=== PATIENT | male | born 1995 | race Asian ===

== ENCOUNTER 2017-07-19 20:56 | Emergency (ER) | payer BC ==
[2017-07-19] MEDS ORDERED: SODIUM CHLORIDE 0.9% (FLUSH) 10 ML SYG IV PRN (21:05)
[2017-07-19] MEDS ORDERED: SODIUM CHLORIDE 0.9% 1000ML 1,000 ML IVS PRN (21:05)
[2017-07-19 21:11] VITALS: O2SAT 99
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
[2017-07-19] MEDS ORDERED: POVIDONE IODINE 10 % 15 ML UD TOP ONE (21:20)
[2017-07-19] MEDS ORDERED: NEOMYCIN-BACITRACIN-POLYMYXIN 0.9 GM UD TOP ONE (21:45)
[2017-07-19] MEDS ORDERED: CHLORHEXIDINE GLUCONATE 4 % 15 ML UD TOP ONE (21:45)
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
[2017-07-19 22:45] VITALS: BP 119/73; TEMP 99.2
[2017-07-19] MEDS ORDERED: fentaNYL CITRATE INJ 50 MCG/ML AMP IV ONE ×2 (23:03)
[2017-07-19] MEDS ORDERED: fentaNYL CITRATE INJ 50 MCG/ML AMP ONE (23:04)
== END 2017-07-19 23:14 | disposition short-term general hospital (02) ==
LOC: ER 20:56
DX: S36.039A Unspecified laceration of spleen, initial encounter (principal); R10.12 Left upper quadrant pain; S40.812A Abrasion of left upper arm, initial encounter; M50.222 Other cervical disc displacement at C5-C6 level; R07.9 Chest pain, unspecified; Y92.410 Unspecified street and highway as the place of occurrence of the external cause; V29.3XXA Motorcycle rider (driver) (passenger) injured in unspecified nontraffic accident, initial encounter
CPT/HCPCS: 36415; 70450; 71260; 72125; 74177; 80053; 80307; 80320; 81001; 82150; 82550; 82553; 84484; 85025; 85610; 85730; 93005; J3010; J7030